=== PATIENT | male | born 1960 | race Caucasian/White ===

== ENCOUNTER 2019-04-06 19:28 | Emergency (ER) | payer MEDICAID ==
[~2019-04-06] VITALS: Ht 180.3 cm; Wt 81.8 kg
[~2019-04-06 19:28] MED LIST: AMOXICILLIN 50500 MG PO; BACTRIM DS 8001 TAB PO; CELEXA10 MG PO; CEPHALEXIN500 M1 PO; CLINDAMYCIN HC300 MG PO; CLINDAMYCIN300 MG PO; DIAZEPAM PO; HYDROCORTISONE30 G1 TP; KLONOPIN 0.5MG0.5 MG PO; LORTAB 5/500 501 TAB PO; NAVANE10 MG PO; NORCO 325 MG-51 TAB PO; RISPERDAL3 MG; SEPTRA DS 8001 TAB PO; TYLENOL W/COD1 UDTAB PO
[2019-04-06 19:36] VITALS: TEMP 98.1
[2019-04-06 19:46] VITALS: BP 141/92
[2019-04-06] MEDS ORDERED: WESTCORT 0.2% C15 GM TP (20:00)
[2019-04-06 20:56] VITALS: PULSE 76
== END 2019-04-06 20:56 | disposition home or self-care (01) ==
LOC: COL.ER 19:28
DX: N48.89 Other specified disorders of penis (principal); F20.9 Schizophrenia, unspecified; F17.210 Nicotine dependence, cigarettes, uncomplicated; Z98.890 Other specified postprocedural states